=== PATIENT | female | born 1975 | race Caucasian/White ===

== ENCOUNTER 2019-03-22 12:45 | Emergency (ER) | payer OTHER ==
[2019-03-22 12:50] VITALS: BP 109/70; PULSE 73; TEMP 98.3; BMI 19.3
[2019-03-22] MEDS ORDERED: KETOROLAC TROMETHAMINE 60 MG/2 ML VIAL IM ONE (13:30)
[2019-03-22] MEDS ORDERED: METHOCARBAMOL 500 MG TABLET PO ONE (13:30)
[2019-03-22] MEDS ORDERED: METHOCARBAMOL 500 MG TABLET ONE (13:31)
[2019-03-22] MEDS ORDERED: KETOROLAC TROMETHAMINE 60 MG/2 ML VIAL ONE (13:31)
--- NOTE | 2019-03-22 13:38 | PDOC ---
History of Present Illness - General Chief Complaint: Pain, Acute Stated Complaint: BACK PAIN Time Seen by Provider: 03/22/19 13:07 - History of Present Illness Initial Comments: 03/22/19 13:55 43yo female with no pmhx presents ambulatory c/o low back pain. States she was vacuuming and developed lbp. States she felt she pulled something. No radiation of the pain. No loss of control of bowel or bladder. No weakness or numbness to legs. No paresthesias. No midline pain. States pain across her low back between SI joints. States similar pain in the past after playing tennis - treated with PT and electric stim. Pt denies abd pain. No urinary complaitns. No rashes. No other complaints. Pt did not take any medications at home for the pain. Pmhx: denies Pshx: denies FDLMP 03/03 meds: none Past History - Past Medical History Allergies/Adverse Reactions: Allergies Allergy/AdvReac Type Severity Reaction Status Date / Time No Known Allergies Allergy Verified 03/22/19 12:45 Home Medications: Ambulatory Orders No Home Medications 0 dose .ROUTE UTDICT 11/15/12 Ibuprofen [Motrin -] 600 mg PO TID PRN #21 tablet 03/22/19 Methocarbamol [Robaxin -] 500 mg PO BID PRN #14 tablet 03/22/19 Anemia: No Asthma: No Cancer: No Cardiac Disorders: No CVA: No COPD: No CHF: No Dementia: No Diabetes: No GI Disorders: No Disorders: No HTN: No Hypercholesterolemia: No Liver Disease: No Seizures: No Thyroid Disease: No - Suicide/Smoking/Psychosocial Hx Smoking History: Never smoked Hx Alcohol Use: No Drug/Substance Use Hx: No Substance Use Type: None Hx Substance Use Treatment: No Review of Systems - Review of Systems Able to Perform ROS?: Yes Is the patient limited Bangl[place]hi proficient: No Constitutional: No: Chills, Fever HEENTM: No: Nose Pain, Throat Pain, Throat Swelling Respiratory: No: Cough, Shortness of Breath Cardiac (ROS): No: Chest Pain, Palpitations ABD/GI: No: Diarrhea, Nausea, Vomiting, Abdominal cramping : No: Burning, Dysuria Musculoskeletal: Yes: Back Pain. No: Muscle Pain, Muscle Weakness, Neck Pain Integumentary: No: Rash Neurological: No: Headache, Numbness, Paresthesia, Tingling, Weakness, Unsteady Gait, Ataxia All Other Systems: Reviewed and Negative *Physical Exam - Vital Signs Last Vital Signs Temp Pulse Resp BP Pulse Ox 98.3 F 73 16 109/70 100 03/22/19 12:45 03/22/19 12:45 03/22/19 12:45 03/22/19 12:45 03/22/19 12:45 - Physical Exam General Appearance: Yes: Nourished, Appropriately Dressed, Mild Distress HEENT: positive: EOMI, Normal Voice Neck: positive: Supple. negative: Tender lateral, Tender midline Respiratory/Chest: positive: Lungs Clear, Normal Breath Sounds. negative: Respiratory Distress Cardiovascular: positive: Regular Rhythm, Regular Rate, S1, S2. negative: Edema Gastrointestinal/Abdominal: positive: Normal Bowel Sounds, Flat, Soft. negative : Guarding, Rebound, Tenderness Musculoskeletal: positive: Normal Inspection, Muscle Spasm (R parapsinal spasms ), Other (no si joint ttp, no midline ttp, no step offs or deformities, neg straight leg raise, no rashes, pain with back extension, better with flexion). negative: CVA Tenderness, Vertebral Tenderness Extremity: positive: Normal Capillary Refill, Normal Inspection, Normal Range of Motion, Pelvis Stable, Other (from of hips, knees, 5/5 muscle strength UE and LE, sensation intact, pedal pulses intact, able to clench butt cheeks). negative: Swelling, Calf Tenderness Integumentary: positive: Normal Color, Dry, Warm. negative: Rash Neurologic: positive: greaser and oiler II-XII NML intact, Fully Oriented, Alert, Normal Mood/ Affect, Motor Strength 5/5. negative: Sensory Deficit ED Treatment Course - Medications Given in the ED: ED Medications Discontinued Medications Generic Name Dose Route Start Last Admin Trade Name Freq PRN Reason Stop Dose Admin Ketorolac Tromethamine 60 mg 03/22/19 13:30 03/22/19 13:35 Toradol Injection - IM 03/22/19 13:31 60 mg ONCE ONE Administration Methocarbamol 500 mg 03/22/19 13:30 03/22/19 13:35 Robaxin - PO 03/22/19 13:31 500 mg ONCE ONE Administration Medical Decision Making - Medical Decision Making 03/22/19 14:00 a/p: 43yo female with low back pain after using the vacuum -upreg ordered -suspect msk pain -no midline ttp, no red flags, no signs/symptoms of caude equina -no meds tried at home -no prior hx of low back injury other than muscle injury while playing tennis treated with conservative pt -will medicate with toradol and robaxin 03/22/19 14:01 upreg neg 03/22/19 15:00 pt feeling much better sitting up, eating, smiling able to ambulate on heels and toes, walks with a steady gait, no limping no midline ttp able to flex forward without difficulty improvement with extension of the spine discussed follow up with back specialist and her pmd will rx meds for pain stable for dc to home *DC/Admit/Observation/Transfer Diagnosis at time of Disposition: Low back pain - Discharge Dispostion Disposition: HOME Condition at time of disposition: Stable Decision to Admit order: No - Prescriptions Prescriptions: Ibuprofen [Motrin -] 600 mg PO TID PRN #21 tablet PRN Reason: Pain Methocarbamol [Robaxin -] 500 mg PO BID PRN #14 tablet PRN Reason: Muscle Spasms - Referrals Referrals: Deacon Trejo MD [Primary Care Provider] - Tha Mcmullen MD, FAANS [Staff Physician] - - Patient Instructions Printed Discharge Instructions: DI for Low Back Pain Additional Instructions: Please take all medications as prescribed. Please make a follow up appointment with your PMD as discussed. Please follow up with the legal service specialist as discussed. Please return to the ED with any further concerns or complaints. Please return to the ED if you develop numbness, tingling, weakness, paresthesias, loss of control of your bowel or bladder, or any worsening pain. - Post Discharge Activity
== END 2019-03-22 15:17 | disposition home or self-care (01) ==
LOC: FER 12:45
PROC: 3E0233Z Introduction of Anti-inflammatory into Muscle, Percutaneous Approach (ICD-10-PCS; principal; 2019-03-22)
DX: M54.5 Low back pain (principal)
CPT/HCPCS: 81025; 99282-25

== ENCOUNTER 2023-09-24 10:48 | Day surgery (SDC) | payer OTHER ==
[2023-09-20 12:21] VITALS: BMI 20.3
[2023-09-24 11:06] VITALS: RESP 20
[2023-09-24 12:11] VITALS: TEMP 97.4
[2023-09-24 12:48] VITALS: BP 101/56; PULSE 75
== END 2023-09-24 12:30 | disposition home or self-care (01) ==
LOC: FASU-ENDO 10:48
PROVIDERS: ATTEND Internal Medicine Gastroenterology
PROC: 0DJD8ZZ Inspection of Lower Intestinal Tract, Via Natural or Artificial Opening Endoscopic (ICD-10-PCS; principal; 2023-09-24 11:33)
DX: Z12.11 Encounter for screening for malignant neoplasm of colon (principal); Z80.0 Family history of malignant neoplasm of digestive organs
CPT/HCPCS: 81025